=== PATIENT | female | born 1970 | race Two or more races ===

== ENCOUNTER → 2025-08-20 | Emergency (ER) | payer OTHER ==
[~2025-08-20] VITALS: Ht 160 cm; Wt 54.4 kg
[~2025-08-20] MED LIST: 0.9 % SODIUM CHLORIDE 1,000 ML IV ONE; AROMASIN25 MG PO; AUGMENTIN125 MG/5 M PO; FAMOTIDINE/PF 20 MG/2 ML VIAL IV ONE; INTESTINEX680 M1 PO; LACTOBACILLUS ACIDOPHILUS 1 CAP CAP PO ONE; ONDANSETRON HCL 2 MG/ML VIAL IV ONE; PHENAZOPYRIDINE HCL 100 MG TABLET PO ONE; ZOFRAN8 MG PO
[2025-08-20 13:51] LABS: BASO % 0.5 % (0.1-1.2); EOS # 0.05 (0.04-0.54); EOS % 0.6 % (0.7-7.0); LYMPH # 1.25 (1.18-3.74); LYMPH % 15.5 % (19.3-53.1); MEAN PLATELET VOLUME 10.40 fl (9.4-12.4); MONO # 0.24 (0.24-0.82); MONO % 3.0 % (4.7-12.5); NEUT # 6.43 (1.56-6.13); NEUT % 79.9 % (34.0-71.1); RED CELL DISTRIBUTION WIDTH 12.5 % (11.6-14.4)
[2025-08-20 14:16] LABS: INR 1.0
[2025-08-20 14:18] LABS: ALT/SGPT 36 U/L (12-78); AST/SGOT 21 U/L (15-37); BILIRUBIN TOTAL 0.48 mg/dL (0.3-1.2); BUN CREA RATIO 27 (7.0-25.0); CREATININE SERUM 0.56 mg/dL (0.55-1.02); GFR 111.58; GLOBULINA 3.9 G/DL (2.4-3.5); GLUCOSE FASTING 94 mg/dL (65-100); OSMOLALITY SERUM 286 MOSM/KG (275-295)
[2025-08-20 15:11] LABS: URINE APPEARANCE Clear; URINE BILIRRUBIN Negative (NEGATIVE); URINE BLOOD Negative; URINE COLOR Yellow; URINE GLUCOSE Negative (NEGATIVE); URINE KETONE Negative (NEGATIVE); URINE LEUKOCYTE Negative; URINE NITRATE Negative; URINE PROTEIN Negative (NEGATIVE); URINE UROBILINOGEN 0.2 E.U./dl
[2025-08-20 15:16] LABS: URINE BACTERIA 1.1 uL (0.0-1933); URINE CAST 0.00 uL (0.0-1.40); URINE EPITHELIAL CELLS 0.3 uL (0.0-38.8); URINE RBC 1.7 uL (0.0-20.8); URINE WBC 0.7 uL (0.0-23.2)
== END | disposition home or self-care (01) ==
LOC: ER 10:13
DX: K52.9 Noninfective gastroenteritis and colitis, unspecified (principal); N39.0 Urinary tract infection, site not specified; R11.10 Vomiting, unspecified